=== PATIENT | female | born 1985 | race Caucasian/White ===

== ENCOUNTER 2017-01-17 07:00 | Day surgery (SDC) | payer BC ==
[~2017-01-17 07:00] MED LIST: Midazolam 1 MG/ML 2 ML SDV ONE; fentaNYL 100 MCG/2 ML SDV ONE
[2017-01-17] MEDS ORDERED: fentaNYL 100 MCG/2 ML SDV IV ONE ×5 (07:54→15:17)
[2017-01-17] MEDS ORDERED: Midazolam 1 MG/ML 2 ML SDV IV ONE ×7 (07:56→15:17)
[2017-01-17] MEDS ORDERED: Dextrose 5%-0.45% NaCl 1,000 ML IV SCH (08:00)
[2017-01-17] MEDS ORDERED: Sodium Chloride 0.9% 10 ML Syringe FLUSH PRN (08:00)
[2017-01-17 09:51] VITALS: BP 104/70
--- NOTE | 2017-01-17 12:23 | OR ---
DATE: 01/17/2017 PROCEDURE: Total colonoscopy. INSTRUMENT USED: PCF-160AL Olympus video colonoscope. PREMEDICATIONS: 1. Fentanyl 150 mcg intravenous. 2. Versed 4 mg intravenous. The procedure was done under pulse oximetry, BP recording, and campus monitor. INDICATION: The patient with chronic constipation and persistent abdominal pain, unexplained, and not responsive to medical measures. Family history for colon cancer in her mother at the age of 60, high risk for colon cancer. Colonoscopic examination is done for detection of any polypoid lesions and removal, endoscopic hemostasis therapy if needed. DESCRIPTION OF PROCEDURE: Initial rectal exam was unremarkable. Rigid anoscopy was normal. The colonoscope was passed with ease up to the ileocecal area, photographs were taken of the normal-appearing cecum identified by double-bulged ileocecal folds. No bleeding was noted from any of the visualized areas at the commencement of the examination. No stricture. No vascular ectasia. No large isolated ulcerations seen. No evidence of diffuse inflammatory bowel disease in the form of friability, contact bleeding, or ulcerations. No polyp or tumor mass identified. Probing the proximal sides of folds and flexures, using adequate distention and clearing up the stool material, withdrawal of the scope was made. Cecum to rectum time over 6 minutes. No bleeding was noted from any of the visualized areas at the completion of examination. IMPRESSION: Normal study. The patient tolerated the procedure well. [facility] /[id number]
== END 2017-01-17 10:10 | disposition home or self-care (01) ==
LOC: DL.ENDO 07:00
PROVIDERS: ATTEND Internal Medicine Gastroenterology
DX: K59.00 Constipation, unspecified (principal); R10.9 Unspecified abdominal pain; E66.9 Obesity, unspecified; Z88.1 Allergy status to other antibiotic agents; F17.210 Nicotine dependence, cigarettes, uncomplicated; Z79.899 Other long term (current) drug therapy; Z98.890 Other specified postprocedural states
CPT/HCPCS: 45378; J2250; J3010; J7042

== ENCOUNTER 2017-03-21 06:29 | Day surgery (SDC) | payer BC ==
[2017-03-21] MEDS ORDERED: ceFAZolin 2 GM in Premix Bag 1 BAG IV ONE (06:30)
[2017-03-21] MEDS ORDERED: Lidocaine 2% 20 ML MDV INJECT ONE (06:30)
[2017-03-21] MEDS ORDERED: Glycopyrrolate 0.2 MG/ML 2 ML SDV IV ONE (06:30)
[2017-03-21] MEDS ORDERED: Propofol 200 MG/20 ML SDV IV ONE (06:30)
[2017-03-21] MEDS ORDERED: Meperidine PF 50 MG/ML Syringe IV ONE (06:30)
[2017-03-21] MEDS ORDERED: Rocuronium 50 MG/5 ML Vial IV ONE (06:30)
[2017-03-21] MEDS ORDERED: Midazolam 1 MG/ML 2 ML SDV IV ONE (06:30)
[2017-03-21] MEDS ORDERED: HYDROmorphone 1 MG/ML Syringe IV ONE (06:30)
[2017-03-21] MEDS ORDERED: Neostigmine Methylsulfate 10 MG/10 ML MDV IV ONE (06:30)
[2017-03-21] MEDS ORDERED: Ondansetron 4 MG/2 ML SDV IV ONE (06:30)
[2017-03-21] MEDS ORDERED: fentaNYL 100 MCG/2 ML SDV IV ONE (06:30)
[2017-03-21] MEDS ORDERED: Ondansetron 4 MG/2 ML SDV ONE (07:33)
[2017-03-21] MEDS ORDERED: Midazolam 1 MG/ML 2 ML SDV ONE (07:33)
[2017-03-21] MEDS ORDERED: Rocuronium 50 MG/5 ML Vial ONE (07:34)
[2017-03-21] MEDS ORDERED: Lidocaine 2% 20 ML MDV ONE (07:34)
[2017-03-21] MEDS ORDERED: Propofol 200 MG/20 ML SDV ONE (07:34)
[2017-03-21] MEDS ORDERED: Meperidine PF 50 MG/ML Syringe ONE (07:34)
[2017-03-21] MEDS ORDERED: fentaNYL 100 MCG/2 ML SDV ONE (07:36)
--- NOTE | 2017-03-21 08:14 | PCM.PREANE ---
Preanesthetic Assessment - Procedure Proposed Procedure: Lap> Cholecystectomy - Anesthesia/Transfusion/Family Hx Anesthesia History: Prior Anesthesia Without Reaction Family History of Anesthesia Reaction: No Transfusion History: No Prior Transfusion(s) Intubation History: Unknown - Review of Systems General: No Symptoms Pulmonary: No Symptoms Cardiovascular: No Symptoms Gastrointestinal: No Symptoms Neurological: No Symptoms Other: Reports: None - Physical Assessment NPO Status Date: 03/20/17 NPO Status Time: 20:00 Pulse: 81 O2 Sat by Pulse Oximetry: 100 Respiratory Rate: 18 Blood Pressure: 115/75 Temperature: 97.8 F Height: 1.75 m Weight: 81.647 kg ASA Class: 1 () Mental Status: Alert & Oriented x3 Airway Class: Mallampati = 2 Dentition: Reports: Normal Dentition Thyro-Mental Finger Breadths: 3 Mouth Opening Finger Breadths: 3 ROM/Head Extension: Full Lungs: Clear to Auscultation, Normal Respiratory Effort Cardiovascular: Regular Rate, Regular Rhythm - Lab Values: test is negative - Allergies Allergies/Adverse Reactions: Allergies Allergy/AdvReac Type Severity Reaction Status Date / Time erythromycin base Allergy Vomiting Verified 03/19/17 12:59 [Erythromycin Base] - Blood Blood Available: No Product(s) Available: None - Anesthesia Plan Pre-Op Medication Ordered: None - Acknowledgements Anesthesia Type Planned: General Anesthesia Pt an Appropriate Candidate for the Planned Anesthesia: Yes Alternatives and Risks of Anesthesia Discussed w Pt/Guardian: Yes Pt/Guardian Understands and Agrees with Anesthesia Plan: Yes Additional Comments: R/B of general Anesthesia is discussed with patient and consent is signed. 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 Other OB/BYN History: previous Neurological History: Reports: Migraines Psychiatric History: Reports: Anxiety, Depression Endocrine/Metabolic History: Reports: Obesity/BMI 30+ - Infectious Disease History Infectious Disease History: Reports: Chicken Pox - Past Surgical History Female Surgical History: Reports: Section Other Female Surgeries/Procedures: HX OF IUD - SUBSTANCE USE Smoking Status *Q: Former Smoker Tobacco Use Within Last Twelve Months: Cigarettes Other Tobacco Use Within Last Twelve Months: 02/13/2017 Second Hand Smoke Exposure: No Days Per Week of Alcohol Use: 0 Number of Drinks Per Day: 0 Total Drinks Per Week: 0 Recreational Drug Use History: No - HOME MEDS Home Medications: Home Meds Ibuprofen 1 tab PO ASDIRECTED 01/15/17 [History] Naratriptan HCl 1 tab PO DAILY PRN 01/15/17 [History] Norgestrel-Ethinyl Estradiol [Elinest-28 Tablet] 1 tab PO DAILY 01/15/17 [ History] Sodium Chloride [Saline Nasal Mist] 1 spray NASBOTH ASDIRECTED 01/15/17 [History ] busPIRone [Buspar] 1 tab PO DAILY PRN 01/15/17 [History] Biotin [Hard Nails] 1 cap PO DAILY 01/16/17 [History] diphenhydrAMINE [Benadryl] 25 mg PO Q6H PRN 01/17/17 [History] - CURRENT (IN HOUSE) MEDS Current Meds: Current Medications Discontinued Medications Fentanyl (Sublimaze) Confirm Administered Dose 200 mcg .ROUTE .STK-MED ONE Stop: 03/21/17 07:37 Cefazolin Sodium/Dextrose (Ancef) Confirm Administered Dose 50 mls @ as directed .ROUTE .STK-MED ONE Stop: 03/21/17 07:43 Lidocaine HCl (Xylocaine 2%) Confirm Administered Dose 20 ml .ROUTE .STK-MED ONE Stop: 03/21/17 07:35 Meperidine HCl (Demerol) Confirm Administered Dose 50 mg .ROUTE .STK-MED ONE Stop: 03/21/17 07:35 Midazolam HCl (Versed 1 Mg/Ml) Confirm Administered Dose 2 mg .ROUTE .STK-MED ONE Stop: 03/21/17 07:34 Ondansetron HCl (Zofran) Confirm Administered Dose 4 mg .ROUTE .STK-MED ONE Stop: 03/21/17 07:34 Propofol (Diprivan 20 Ml) Confirm Administered Dose 200 mg .ROUTE .STK-MED ONE Stop: 03/21/17 07:35 Rocuronium [place] (Zemuron) Confirm Administered Dose 50 mg .ROUTE .STK-MED ONE Stop: 03/21/17 07:35
[2017-03-21] MEDS ORDERED: HYDROmorphone 1 MG/ML Syringe ONE ×2 (08:56→09:06)
--- NOTE | 2017-03-21 09:13 | PCM.POSTAN ---
POST ANESTHESIA ASSESSMENT - MENTAL STATUS Mental Status: Alert, Oriented - VITAL SIGNS Pulse Rate: 82 SaO2: 100 Resp Rate: 18 Blood Pressure: 134/82 Temperature: 97.6 F - RESPIRATORY Respiratory Status: Respiratory Rate WNL, Airway Patent, O2 Saturation Stable - CARDIOVASCULAR CV Status: Pulse Rate WNL, Blood Pressure Stable - GASTROINTESTINAL GI Status: No Symptoms - PAIN Pain Score: 3 Free Text/Narrative:: Patient pain was 6 and was treated with 2 mg dilaudid( titrated to effect) pain is under control with a score of 3. Tolerated fluid well and discharged to her room on the floor. - POST OP HYDRATION Hydration Status: Adequate & Stable
--- NOTE | 2017-03-21 09:28 | OR ---
DATE: 03/21/2017 ATTENDING SURGEON: Soy Hanks MD DIGITAL PROGRAM MANAGER SURGEON: Paolo Elizondo, PGY-III PREOPERATIVE DIAGNOSIS: Symptomatic cholelithiasis. POSTOPERATIVE DIAGNOSIS: Symptomatic cholelithiasis. OPERATIVE PROCEDURE: Laparoscopic cholecystectomy. ESTIMATED BLOOD LOSS: 5 mL. SPECIMEN: Gallbladder INTRAOPERATIVE FINDINGS: Normal appearing gallbladder, normal appearing liver. No intra-abdominal adhesions present. Gallbladder was opened on the back table with evidence of two large stones and normal appearing colored bile. INDICATION FOR PROCEDURE: Clari Eisenberg is a 32-year-old female, who presented with signs and symptoms of symptomatic cholelithiasis. We discussed the risks and benefits as well as alternatives and non operative management and she wished to proceed with surgery at this time. DETAILS OF PROCEDURE: The patient was brought to the operating room, placed supine on the operating room table. SCDs were placed. Antibiotics were given. She was intubated and sedated without issue. She was prepped and draped in standard sterile fashion. Procedural time-out was performed and all were in agreement. A 12 mm infraumbilical incision was made and insufflation was obtained using Veress needle. A 12 mm trocar was then placed without issue. An additional 12 mm port was placed in the subxiphoid and two 5 mm right upper quadrant trocars. The gallbladder was retracted cephalad towards the right shoulder. The peritoneum was scored all the way to the liver bed on both sides. The cystic duct and artery were dissected free from the surrounding tissue. [place] of safety was obtained. They were doubly clipped on both the proximal and distal portions and cut in between the clips. Electrocautery was then used to free the gallbladder from the liver bed until it was free, it was then extracted through the subxiphoid 12 mm port site. Hemostasis was reassured. The trocars were removed under direct visualization without any obvious bleeding. The skin was closed with 4-0 Monocryl. Steri-Strips and sterile bandages were placed. The patient was brought out of anesthesia and transferred to PACU in stable condition. All counts were correct at the end of the case. Dr. Soy Hanks was present, scrubbed, and directed all portions of the procedure. [facility] /[id number] [facility]
[2017-03-21] MEDS ORDERED: Ondansetron 4 MG/2 ML SDV IV PRN (10:07)
[2017-03-21] MEDS ORDERED: Sodium Chloride 0.9% 10 ML Syringe FLUSH PRN (10:17)
[2017-03-21] MEDS: Acetaminophen/oxyCODONE 325-5 MG Tab PO PRN ×4 (10:54→23:48)
[2017-03-22] MEDS: Acetaminophen/oxyCODONE 325-5 MG Tab PO PRN ×2 (04:16→08:13)
--- NOTE | 2017-03-22 07:58 | DISCH ---
ADMISSION DIAGNOSIS: Symptomatic cholelithiasis. DISCHARGE DIAGNOSIS: Symptomatic cholelithiasis. OPERATIVE PROCEDURE: Laparoscopic cholecystectomy. DIET UPON DISCHARGE: Regular. MEDICATIONS UPON DISCHARGE: All home medications restarted. Handwritten script given to the patient for Percocet 5/325 mg. Discussed starting an over-the- counter bowel regimen, which she would like to start an [id number] senna, which was okay. ACTIVITY: As tolerated. No lifting more than 20 pounds for 4 weeks. FOLLOWUP: Follow up as needed. Dr. Hanks is back the week of 04/08/2017, and she can follow up then if there are any questions. DISCHARGE INSTRUCTIONS: She may shower starting tomorrow. No tub bathing or swimming until the wounds are completely healed. She is to keep the operative sites clean and dry. Notify if any fever, increased pain, increased swelling, redness, or drainage to the area. HOSPITAL COURSE: Clari Eisenberg is a 32-year-old female who presented with signs and symptoms consistent with symptomatic cholelithiasis. She underwent a laparoscopic appendectomy without issue. Postoperatively, she was kept overnight for observation as an outpatient in a bed. She was ambulating and tolerating a diet without issue. Her pain was well controlled. 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 Her hospital course was unremarkable, and therefore, she was discharged on postoperative day #1. Follow up as listed above. Discharge instructions as above. [facility] /[id number]
[2017-03-22 09:29] VITALS: BP 120/68
== END 2017-03-22 08:40 | disposition home or self-care (01) ==
LOC: DL.SDS 06:29 → DL.MS 09:24 → EDSTATUS 10:30 → DL.SDS 03-22 08:40
PROVIDERS: ATTEND Surgery
DX: K80.10 Calculus of gallbladder with chronic cholecystitis without obstruction (principal)
CPT/HCPCS: 47562; 81025; A9270; J0690; J1170; J2175; J2250; J2405; J2704; J2710; J3010; J3490

== ENCOUNTER 2017-04-23 04:45 | Emergency (ER) | payer BC ==
[2017-04-23] MEDS ORDERED: Ondansetron 4 MG Tab.DIS PO ONE (04:46)
[2017-04-23] MEDS ORDERED: Acetaminophen/oxyCODONE 325-5 MG Tab PO ONE (04:46)
--- NOTE | 2017-04-23 04:55 | EDM.PDOC ---
ED HPI GENERAL MEDICAL PROBLEM - General Chief Complaint: ENT Problem Stated Complaint: EAR PAIN Time Seen by Provider: 04/23/17 05:05 Source of Information: Reports: Patient History Limitations: Reports: No Limitations - History of Present Illness INITIAL COMMENTS - FREE TEXT/NARRATIVE: c/o severe right ear pain with drainage, left ear tender, not draining, throat sore, right side of face feels swollen. Was [facility] and started on Rocephin, kenalog, and amoxicillin. Notes given a toardol shot that helped with pain until bed. Tried Tylenol #3 but not helping. - Related Data Allergies Allergy/AdvReac Type Severity Reaction Status Date / Time erythromycin base Allergy Vomiting Verified 04/23/17 04:53 [Erythromycin Base] Home Meds: Home Meds Ibuprofen 800 mg PO TID PRN 01/15/17 [History] Naratriptan HCl 2.5 mg PO ASDIRECTED PRN 01/15/17 [History] Norgestrel-Ethinyl Estradiol [Elinest-28 Tablet] 1 tab PO DAILY 01/15/17 [ History] busPIRone [Buspar] 10 mg PO BID PRN 01/15/17 [History] Biotin [Hard Nails] 2,500 mcg PO DAILY 01/16/17 [History] diphenhydrAMINE [Benadryl] 25 mg PO Q6H PRN 01/17/17 [History] Past Medical History HEENT History: Reports: Impaired Vision Cardiovascular History: Reports: Other (See Below) Other Cardiovascular History: tachycardia Gastrointestinal History: Reports: Chronic Constipation, Irritable Bowel Syndrome Genitourinary History: Reports: None 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: , 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 Other OB/BYN History: previous Neurological History: Reports: Migraines Psychiatric History: Reports: Anxiety, Depression Endocrine/Metabolic History: Reports: Obesity/BMI 30+ Dermatologic History: Reports: Psoriasis - Infectious Disease History Infectious Disease History: Reports: Chicken Pox - Past Surgical History HEENT Surgical History: Reports: None Cardiovascular Surgical History: Reports: None GI Surgical History: Reports: Cholecystectomy Female Surgical History: Reports: Section Other Female Surgeries/Procedures: HX OF IUD- not in place now Neurological Surgical History: Reports: None Dermatological Surgical History: Reports: Skin Biopsy Social & Family History - Family History Family Medical History: Noncontributory - Tobacco Use Smoking Status *Q: Former Smoker Years of Tobacco use: 16 Packs/Tins Daily: 0.5 Used Tobacco, but Quit: Yes Month Tobacco Last Used: january Second Hand Smoke Exposure: No - Caffeine Use Caffeine Use: Reports: Coffee, Soda - Alcohol Use Days Per Week of Alcohol Use: 0 Number of Drinks Per Day: 0 Total Drinks Per Week: 0 - Recreational Drug Use Recreational Drug Use: No ED ROS ENT - Review of Systems Review Of Systems: See Below Constitutional: Reports: Decreased Appetite HEENT: Reports: Ear Discharge, Ear Pain, Throat Pain Respiratory: Reports: No Symptoms, Shortness of Breath. Denies: Cough Cardiovascular: Reports: No Symptoms GI/Abdominal: Reports: Nausea. Denies: Vomiting Skin: Reports: No Symptoms Neurological: Reports: No Symptoms ED EXAM, ENT - Physical Exam Exam: See Below Exam Limited By: No Limitations General Appearance: Alert, Moderate Distress (tearful) Eye Exam: Bilateral Eye: EOMI Ears: Normal External Exam, Canal Discharge, TM Bulging (left), TM Perforation ( right, bloody drainage). No: Normal TMs Nose: Normal Inspection Mouth/Throat: Tonsillar Erythema, Tonsillar Exudates, Tonsillar Swelling Head: Atraumatic, Normocephalic Neck: Full Range of Motion, Lymphadenopathy (L), Lymphadenopathy (R) Respiratory/Chest: No Respiratory Distress, Lungs Clear Cardiovascular: Normal Peripheral Pulses, Regular Rate, Rhythm Back: Full Range of Motion Extremities: Normal Range of Motion Neurological: Alert, Oriented Psychiatric: Tearful Skin: Warm, Dry, Normal Color Course - Orders/Labs/Meds Meds: Medications Discontinued Medications Generic Name Dose Route Start Last Admin Trade Name Luisito PRN Reason Stop Dose Admin Ceftriaxone Sodium 1 gm/ 0 gm 04/23/17 05:04 04/23/17 05:13 Lidocaine HCl 2.1 ml IM 04/23/17 05:05 2.3 inj ONETIME ONE Administration Ketorolac Tromethamine 30 mg 04/23/17 05:04 04/23/17 05:14 Toradol IM 04/23/17 05:05 30 mg ONETIME ONE Administration Ondansetron HCl Confirm 04/23/17 05:19 Zofran Odt Administered 04/23/17 05:20 Dose 8 mg .ROUTE .STK-MED ONE Oxycodone/Acetaminophen Confirm 04/23/17 05:19 Percocet 325-5 Mg Administered 04/23/17 05:20 Dose 2 tab .ROUTE .STK-MED ONE Departure - Departure Time of Disposition: 05:31 Disposition: Home, Self-Care 01 Condition: Good Clinical Impression: Acute bacterial tonsillitis Otitis media Qualifiers: Otitis media type: serous Chronicity: acute Laterality: bilateral Recurrence: not specified as recurrent Qualified Code(s): H65.03 - Acute serous otitis media , bilateral Ruptured tympanic membrane Qualifiers: Laterality: right Qualified Code(s): H72.91 - Unspecified perforation of tympanic membrane, right ear - Discharge Information Forms: ED Department Discharge Additional Instructions: Zofran ODT one every 4 hours as needed for nausea #10 Ofloxacin Otic 0.3% 10 drops twice daily for 10 days Toradol 10mg one every 6 hours as needed for severe pain #10 Percocet one every 6 hours #2 Continue amoxicillin Follow up in clinic in 10 days, sooner if not improving increase fluid intake while on antibiotic diflucan 150mg one at symptoms onset and repeat in 72 hours #2
[2017-04-23] MEDS ORDERED: cefTRIAXone 1 GM, Lidocaine 1% 2.1 ML IM ONE ×2 (05:04)
[2017-04-23] MEDS ORDERED: Ketorolac 30 MG/ML SDV IM ONE (05:04)
[2017-04-23] MEDS ORDERED: Ondansetron 4 MG Tab.DIS ONE (05:19)
[2017-04-23] MEDS ORDERED: Acetaminophen/oxyCODONE 325-5 MG Tab ONE (05:19)
[2017-04-23 05:27] VITALS: BP 138/84
== END 2017-04-23 05:30 | disposition home or self-care (01) ==
LOC: DL.ED 04:45
DX: J03.80 Acute tonsillitis due to other specified organisms (principal); B96.89 Other specified bacterial agents as the cause of diseases classified elsewhere; H65.03 Acute serous otitis media, bilateral; H72.91 Unspecified perforation of tympanic membrane, right ear; E66.9 Obesity, unspecified; F32.9 Major depressive disorder, single episode, unspecified; F41.9 Anxiety disorder, unspecified; Z88.1 Allergy status to other antibiotic agents; Z79.899 Other long term (current) drug therapy; Z87.891 Personal history of nicotine dependence
CPT/HCPCS: 96372; 99282; A9270; J0696; J1885

== ENCOUNTER 2017-04-24 01:54 | Emergency (ER) | payer BC ==
[2017-04-24 02:09] VITALS: BP 142/85
[2017-04-24] MEDS ORDERED: Ketorolac 30 MG/ML SDV IM ONE (02:14)
--- NOTE | 2017-04-24 02:21 | EDM.PDOC ---
ED HPI GENERAL MEDICAL PROBLEM - General Chief Complaint: ENT Problem Stated Complaint: EAR PAIN Time Seen by Provider: 04/24/17 02:05 Source of Information: Reports: Patient History Limitations: Reports: No Limitations - History of Present Illness INITIAL COMMENTS - FREE TEXT/NARRATIVE: C/O continued severe right ear pain, worse after toradol wears off, Tried oral toradol that was prescribed yesterday and nauseated from it and noted that it did not work as well. Patient stated she was seen in clinic today around 430 and given another dose of Rocephin and IM toradol, . Referral later this am with ENT in [place]. Notes ear drainage slightly decreased. Pain all around ear now and feel like area is swelling. Duration: Day(s): Left Ear Pain Score (Numeric/FACES): 8 - Related Data Allergies Allergy/AdvReac Type Severity Reaction Status Date / Time erythromycin base Allergy Vomiting Verified 04/25/17 12:01 [Erythromycin Base] Home Meds: Home Meds Ibuprofen 800 mg PO TID PRN 01/15/17 [History] Naratriptan HCl 2.5 mg PO ASDIRECTED PRN 01/15/17 [History] Norgestrel-Ethinyl Estradiol [Elinest-28 Tablet] 1 tab PO DAILY 01/15/17 [ History] busPIRone [Buspar] 10 mg PO BID PRN 01/15/17 [History] Biotin [Hard Nails] 2,500 mcg PO DAILY 01/16/17 [History] diphenhydrAMINE [Benadryl] 25 mg PO Q6H PRN 01/17/17 [History] Ofloxacin [Floxin 0.3% Otic Soln] 10 drop EARRT BID 04/25/17 [History] Ondansetron HCl [Zofran] 4 mg PO DAILY PRN 04/25/17 [History] oxyCODONE HCl/Acetaminophen [Oxycodone-Acetaminophen 10-300] 1 tab PO DAILY PRN 04/25/17 [History] Past Medical History HEENT History: Reports: Impaired Vision Cardiovascular History: Reports: Other (See Below) Other Cardiovascular History: tachycardia Gastrointestinal History: Reports: Chronic Constipation, Irritable Bowel Syndrome Genitourinary History: Reports: None 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: , 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 Other OB/BYN History: previous Neurological History: Reports: Migraines Psychiatric History: Reports: Anxiety, Depression Endocrine/Metabolic History: Reports: Obesity/BMI 30+ Dermatologic History: Reports: Psoriasis - Infectious Disease History Infectious Disease History: Reports: Chicken Pox - Past Surgical History HEENT Surgical History: Reports: None Cardiovascular Surgical History: Reports: None GI Surgical History: Reports: Cholecystectomy Female Surgical History: Reports: Section Other Female Surgeries/Procedures: HX OF IUD- not in place now Neurological Surgical History: Reports: None Dermatological Surgical History: Reports: Skin Biopsy Social & Family History - Family History Family Medical History: Noncontributory - Tobacco Use Smoking Status *Q: Never Smoker Years of Tobacco use: 16 Packs/Tins Daily: 0.5 Used Tobacco, but Quit: Yes Month Tobacco Last Used: january Second Hand Smoke Exposure: Yes - Caffeine Use Caffeine Use: Reports: Coffee, Soda - Alcohol Use Days Per Week of Alcohol Use: 0 Number of Drinks Per Day: 0 Total Drinks Per Week: 0 - Recreational Drug Use Recreational Drug Use: No ED ROS ENT - Review of Systems Review Of Systems: See Below Constitutional: Reports: Fever HEENT: Reports: Ear Pain (right), Throat Pain Respiratory: Reports: No Symptoms GI/Abdominal: Reports: Nausea Neurological: Reports: Headache (right side around ear) ED EXAM, ENT - Physical Exam Exam: See Below Exam Limited By: No Limitations General Appearance: Alert, Moderate Distress Ears: Normal Canal (left), Canal Discharge (right, blood tinged clear fluid draining), TM Dullness (left), TM Perforation (right) Nose: Normal Inspection Head: Atraumatic, Normocephalic, Facial Tenderness (right lateral around ear and mastoid area, no obvious swelling of mastoid area.) Neck: Full Range of Motion, Lymphadenopathy (L), Lymphadenopathy (R). No: Limited Range of Motion Respiratory/Chest: No Respiratory Distress, Lungs Clear Cardiovascular: Regular Rate, Rhythm Neurological: Alert, Oriented, Normal Cognition Psychiatric: Anxious, Tearful Skin: Warm, Increased Warmth Course - Vital Signs Last Recorded V/S: Last Vital Signs Temp 99.2 F 04/24/17 02:05 Pulse 99 04/24/17 02:05 Resp 19 04/24/17 02:05 BP 142/85 H 04/24/17 02:05 Pulse Ox 100 04/24/17 02:05 - Orders/Labs/Meds Meds: Medications Discontinued Medications Generic Name Dose Route Start Last Admin Trade Name Luisito PRN Reason Stop Dose Admin Ketorolac Tromethamine 60 mg 04/24/17 02:14 04/24/17 02:25 Toradol IM 04/24/17 02:15 60 mg ONETIME ONE Administration Departure - Departure Time of Disposition: 02:25 Disposition: Home, Self-Care 01 Condition: Fair Clinical Impression: Strep pharyngitis Ruptured tympanic membrane Qualifiers: Laterality: right Qualified Code(s): H72.91 - Unspecified perforation of tympanic membrane, right ear Otitis media Qualifiers: Otitis media type: serous Chronicity: acute Laterality: right Recurrence: not specified as recurrent Qualified Code(s): H65.01 - Acute serous otitis media, right ear - Discharge Information Instructions: Eardrum Perforation, [id number] Referrals: Norma Ferrell MD [Primary Care Provider] - Forms: ED Department Discharge Additional Instructions: Continue antibiotics ENT referral in am as scheduled
== END 2017-04-24 02:26 | disposition home or self-care (01) ==
LOC: DL.ED 01:54
DX: H72.91 Unspecified perforation of tympanic membrane, right ear (principal); H65.01 Acute serous otitis media, right ear; J02.0 Streptococcal pharyngitis; E66.9 Obesity, unspecified; F41.9 Anxiety disorder, unspecified; F32.9 Major depressive disorder, single episode, unspecified; L40.9 Psoriasis, unspecified; Z88.1 Allergy status to other antibiotic agents; Z79.899 Other long term (current) drug therapy
CPT/HCPCS: 96372; 99282; J1885

== ENCOUNTER 2017-04-25 21:54 | Observation (INO) | payer BC ==
[2017-04-25] MEDS ORDERED: Sodium Chloride 0.9% 10 ML Syringe FLUSH PRN (22:09)
[2017-04-25] MEDS ORDERED: Promethazine 25 MG/ML SDV IM PRN (22:09)
[2017-04-25] MEDS: Piperacillin/Tazobactam 3.375 GM in Sodium Chloride 0.9% 100 ML IV SCH (23:51)
[2017-04-26 00:02] LABS: CHLORIDE,CL 105 mmol/L (101-111); SODIUM,NA 137 mmol/L (135-145)
[2017-04-26] MEDS: Ibuprofen 800 MG Tab PO PRN ×2 (00:58→08:24)
--- NOTE | 2017-04-26 02:40 | HP ---
CHIEF COMPLAINT: Mastoiditis, needing IV antibiotics. HISTORY OF PRESENT ILLNESS: A 32-year-old female patient, [facility] order to change her IV antibiotics for mastoiditis. The patient was originally seen at [facility] on Saturday for worsening right-sided ear pain and diagnosed with otitis media, treated with Rocephin, amoxicillin, and injection of Depo-Medrol. Also needed some Toradol for controlling the pain. Ultimately, her symptoms worsened and on April 24, she was seen by ENT in [place], who performed CT scan and laboratory work and diagnosed her with mastoiditis. She then received Rocephin and vancomycin in the Emergency Department in [place], 2 g of the Rocephin and 500 mg of the vancomycin. She was then sent to me for outpatient daily IV antibiotic therapy. Today, in the hospital, she received 500 mg of vancomycin and 1 g of Rocephin and then, this evening, I had opportunity to speak with the ENT doctor and it seemed rather unclear the best antibiotic treatment and specific dosing that would be necessary. I then called Dr. Betancur, the infectious disease specialist at [facility], and reviewed the patient's case. It was ultimately decided that 1 g of vancomycin every 12 hours, and Zosyn 3.325 infused over 4 hours to be performed every 8 hours was the best course of treatment along with discontinuation of the Rocephin at this time. Pending further cultures, antibiotic therapy will be further decided upon and altered as appropriate. Currently, the Gram-stain was not known to me and simply reported out as "not helpful." The culture will hopefully be back tomorrow and the patient can go to [place] and see the infectious disease specialist and have those reports at that time. During my discussion with Dr. Ashraf, the Ear, Nose, and Throat doctor, we discussed that the eardrum was red and bulging and he had anticipated getting more purulent drainage when he placed the ventilation tube; however, it seemed to be more of a weeping in quality and the patient reports that the pain has not been significantly improved by placement of the tube as she had hoped it would and feels majority of her pain is due to the inflammation. This afternoon, I also started her on some prednisone and she feels that her pain is much better controlled with the steroids on board and understands that repeat IV doses of Toradol could potentially be dangerous for her kidneys and not the ideal pain medication. She has had some different opioids given in the past couple of days and those have not been helpful nor does she like to take those types of medications. The patient reports she still just does not feel generally well, mild nausea, continues to have significant dizziness any time that she moves her head quickly. 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 PAST MEDICAL HISTORY: 1. Cholelithiasis. 2. Depression with anxiety. 3. Dysmenorrhea. 4. History of recurrent miscarriages. 5. Irritable bowel syndrome. 6. Migraine headaches. 7. Reactive hypoglycemia. PAST SURGICAL HISTORY: 1. Laparoscopic cholecystectomy. 2. Low transverse section x2. 3. Colonoscopy. FAMILY HISTORY: Mother is alive, she has bipolar disorder, colon cancer diagnosed at age 60 with metastases to her ovaries. Father is alive with diabetes type 2. The patient has 2 sisters and 2 brothers, all of whom are alive. Maternal grandmother is . Family history is negative for anesthesia problems, seizure disorders, cystic fibrosis, multiple births or defects, clotting or bleeding disorders. SOCIAL HISTORY: The patient smokes less than 1/2 pack per day and plans on quitting. Rarely uses alcohol. 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 She is to Joe, who continues to work as an RN at [employer] in [place]. She has two children. ALLERGIES: Erythromycin is an intolerance causing nausea and vomiting. CURRENT MEDICATIONS: 1. Prednisone 50 mg p.o. daily, started today. 2. Ofloxacin otic drops, 10 drops in the right ear twice daily. 3. Biotin 2500 mcg daily. 4. Elinest oral contraceptive pill 1 daily. 5. Ibuprofen 800 mg three times daily as needed. 6. Zofran 4 mg daily as needed. 7. Oxycodone 10/300 one tab daily as needed. 8. Outpatient receiving vancomycin and Rocephin earlier today. REVIEW OF SYSTEMS: As per the history of present illness. The patient denies any overt fevers or chills. No diarrhea or constipation. No sore throat or chest pain. Denies discomfort of the left ear. Right ear reported to have sharp shooting pains that radiate down into the neck and significant vertigo. PHYSICAL EXAMINATION: Vital Signs: Weight 83.8 kg, stated height 5 feet 9 inches, temperature is 98.3, pulse 97, blood pressure initially 150/90, recheck 135/89, oxygen saturations 97% on room air. Respiratory rate of 20. HEENT: Head is normocephalic. No obvious signs of trauma. No visible swelling. Mild tenderness noted to palpation behind the right ear. External canal and auricle appear normal. Tympanic membrane is beefy red and raw in appearance, looks as though it should be bleeding and amazingly is not. There is a blue PE tube in place with small amount of purulent drainage at this time. Left tympanic membrane appears normal. Neck: Supple without any significant adenopathy. The patient reports that the swelling in the submandibular region has gone down. Heart: Regular without any murmur. Lungs: Clear bilaterally. Abdomen: Soft without masses. Extremities: No edema, erythema, or tenderness. Skin: Warm, dry, appropriate for race. No rashes. ASSESSMENT: 1. Mastoiditis. 2. Severe pain secondary to #1. 3. History of anxiety with depression and recently having increased anxiety partly due to her medical condition. PLAN: At this time, she has been admitted to the hospital and we will give her the 1 g of vancomycin, it is due at this time, as well as start the Zosyn 325 mg every 8 hours. Tomorrow morning, we will arrange for her to see Infectious Disease and additional antibiotics that are warranted to coincide with this will be administered. I have discussed with the patient that per my discussion with Dr. Betancur, she may need to have a PICC line placed and anticipate 2 weeks of antibiotics which we will try to arrange to be provided at home; however, she may need to spend some additional time in the Emergency Department. Per Dr. Ashraf, if the mastoiditis is not resolved with appropriate antibiotic therapy, then possible mastoidectomy should be considered. The patient's questions were answered and she was in agreement with the plan. [facility] /[id number] [facility]ITALJefferson
[2017-04-26] MEDS ORDERED: Piperacillin/Tazobactam 3.375 GM in Sodium Chloride 0.9% 100 ML IV SCH (06:00)
[2017-04-26] MEDS: Piperacillin/Tazobactam 3.375 GM in Sodium Chloride 0.9% 100 ML IV SCH (08:24)
[2017-04-26] MEDS ORDERED: Ketorolac 30 MG/ML SDV IVPUSH ONE (08:46)
[2017-04-26] MEDS ORDERED: Vancomycin 250 MG in Sodium Chloride 0.9% 100 ML IV ONE (09:30)
[2017-04-26 11:31] VITALS: BP 121/61
--- NOTE | 2017-05-02 17:16 | DISCH ---
ADMITTING DIAGNOSIS: Right-sided acute mastitis. DISCHARGE DIAGNOSIS: Right-sided acute mastitis. BRIEF HISTORY: A 32-year-old female, admitted to the hospital last night because of need for change in outpatient IV antibiotic therapy. She was essentially being underdosed with outpatient vancomycin and Rocephin. After discussion with Infectious Disease, felt that she needed to be changed over to Zosyn and vancomycin, and in order to accommodate the Zosyn infusions every 8 hours over 4 hours per infusion, she was admitted to the hospital. HOSPITAL COURSE: Hospital course has been good. She has received her antibiotics on time and as expected, currently running through 2 different IV sites. I have made arrangements for her to be seen by Infectious Disease today for further evaluation and placement of PICC line and continued IV antibiotic management. Hospital course has been good without any unusual effects. DISCHARGE CONDITION: Good. PHYSICAL EXAMINATION: Vital Signs: Temperature is 99.0, Blood pressure 121/61, respiratory rate of 20, O2 saturations 100% on room air. Heart And Lung: Formal heart and lung exam were deferred at this time as patient was seen only 6 to 7 hours ago, and will not affect management. DISPOSITION: Infectious Disease outpatient appointment today. MEDICATIONS: She can continue her; 1. Oral prednisone, Tylenol, and ibuprofen as needed. 2. IV antibiotics will be per the Infectious disease's recommendations. The patient's questions have been answered. She is happy with the plan. [facility] /[id number]
== END 2017-04-26 11:30 | disposition home or self-care (01) ==
LOC: DL.MS 22:09 → UNDOADMOB 22:29 → DL.MS 22:29
PROVIDERS: ADMIT Family Medicine; ATTEND Family Medicine
DX: H70.001 Acute mastoiditis without complications, right ear (principal); F41.8 Other specified anxiety disorders; K58.9 Irritable bowel syndrome, unspecified; F17.210 Nicotine dependence, cigarettes, uncomplicated; Z90.49 Acquired absence of other specified parts of digestive tract; Z98.890 Other specified postprocedural states; Z88.1 Allergy status to other antibiotic agents; Z79.2 Long term (current) use of antibiotics; Z79.899 Other long term (current) drug therapy
CPT/HCPCS: 36415; 80048; 80202; 85025; 96365; 96366; 96375; A9270; G0378; G0379; J1885; J2543; J3370; J7050

== ENCOUNTER 2017-05-15 14:17 | Emergency (ER) | payer BC ==
[2017-05-15 15:35] LABS: CHLORIDE,CL 105 mmol/L (101-111); SODIUM,NA 134 mmol/L (135-145)
[2017-05-15] MEDS ORDERED: Potassium Chloride 10 MEQ Tab.ER PO ONE (17:45)
[2017-05-15] MEDS ORDERED: Ondansetron 4 MG/2 ML SDV IV ONE (17:52)
[2017-05-15] MEDS ORDERED: Ondansetron 4 MG Tab.DIS PO ONE (18:00)
--- NOTE | 2017-05-15 18:16 | EDM.PDOC ---
ED HPI GENERAL MEDICAL PROBLEM - General Chief Complaint: General Stated Complaint: HIGH TEMP Time Seen by Provider: 05/15/17 15:30 Source of Information: Reports: Patient, RN, RN Notes Reviewed History Limitations: Reports: No Limitations - History of Present Illness INITIAL COMMENTS - FREE TEXT/NARRATIVE: Pt presents to the ER with c/o headache, fever, generalized aching and weakness. She has been doctoring with ENT and infectious disease at [facility] for the past month with a dx of mastoiditis. She has been taking IV Zosyn for 3-4 weeks. She states her fever at home was 104 and she took ibuprofen for this. She states she called Dr. Brewer's office and was told to present to ER. Onset: Gradual Location: Reports: Head Right Ear Pain Score (Numeric/FACES): 2 - Related Data Allergies Allergy/AdvReac Type Severity Reaction Status Date / Time erythromycin base Allergy Vomiting Verified 04/25/17 12:01 [Erythromycin Base] Home Meds: Home Meds Ibuprofen 800 mg PO TID PRN 01/15/17 [History] Naratriptan HCl 2.5 mg PO ASDIRECTED PRN 01/15/17 [History] Norgestrel-Ethinyl Estradiol [Elinest-28 Tablet] 1 tab PO DAILY 01/15/17 [ History] busPIRone [Buspar] 10 mg PO BID PRN 01/15/17 [History] Biotin [Hard Nails] 2,500 mcg PO DAILY 01/16/17 [History] diphenhydrAMINE [Benadryl] 25 mg PO Q6H PRN 01/17/17 [History] Ofloxacin [Floxin 0.3% Otic Soln] 10 drop EARRT BID 04/25/17 [History] Ondansetron HCl [Zofran] 4 mg PO DAILY PRN 04/25/17 [History] oxyCODONE HCl/Acetaminophen [Oxycodone-Acetaminophen 10-300] 1 tab PO Q6H PRN [History] Piperacillin/Tazobactam [Zosyn] 4.5 gm IV TID 05/15/17 [History] Past Medical History HEENT History: Reports: Impaired Vision, Other (See Below) Other HEENT History: RIGHT MASTOIDITIS Cardiovascular History: Reports: Other (See Below) Other Cardiovascular History: tachycardia Gastrointestinal History: Reports: Chronic Constipation, Irritable Bowel Syndrome Genitourinary History: Reports: None 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: Reports: , Spontaneous Other OB/BYN History: previous Neurological History: Reports: Migraines Psychiatric History: Reports: Anxiety, Depression Endocrine/Metabolic History: Reports: Obesity/BMI 30+ Dermatologic History: Reports: Psoriasis - Infectious Disease History Infectious Disease History: Reports: Chicken Pox - Past Surgical History HEENT Surgical History: Reports: Myringotomy w Tube(s), Other (See Below) Cardiovascular Surgical History: Reports: None GI Surgical History: Reports: Cholecystectomy Female Surgical History: Reports: Section Other Female Surgeries/Procedures: HX OF IUD- not in place now Neurological Surgical History: Reports: None Dermatological Surgical History: Reports: Skin Biopsy Social & Family History - Family History Family Medical History: Noncontributory - Tobacco Use Smoking Status *Q: Former Smoker Years of Tobacco use: 15 Packs/Tins Daily: 1 Used Tobacco, but Quit: Yes Month Tobacco Last Used: january 2017 Second Hand Smoke Exposure: Yes - Caffeine Use Caffeine Use: Reports: Soda - Alcohol Use Days Per Week of Alcohol Use: 0 Number of Drinks Per Day: 0 Total Drinks Per Week: 0 - Recreational Drug Use Recreational Drug Use: No ED ROS GENERAL - Review of Systems Review Of Systems: ROS reveals no pertinent complaints other than HPI. ED EXAM, GENERAL - Physical Exam Exam: See Below Exam Limited By: No Limitations General Appearance: Alert, WD/WN, No Apparent Distress Eye Exam: Bilateral Eye: Normal Inspection Ears: Hearing Grossly Normal, Other (Cotton ball in right ear. TM's not examined at this time.) Nose: Normal Inspection Throat/Mouth: Normal Inspection, Normal Voice, No Airway Compromise Head: Atraumatic, Normocephalic Neck: Normal Inspection Respiratory/Chest: No Respiratory Distress, Lungs Clear, Normal Breath Sounds, No Accessory Muscle Use, Chest Non-Tender Cardiovascular: Normal Peripheral Pulses, Regular Rate, Rhythm, No Edema, No Gallop, No JVD, No Murmur, No Rub Peripheral Pulses: 2+: Radial (L), Radial (R) GI/Abdominal: Normal Bowel Sounds, Soft, Non-Tender (Female) Exam: Deferred Rectal (Female) Exam: Deferred Back Exam: Normal Inspection, Full Range of Motion Extremities: Normal Inspection, Normal Range of Motion, Non-Tender, No Pedal Edema, Normal Capillary Refill Neurological: Alert, Oriented, Normal Cognition, Normal Gait, No Motor/Sensory Deficits Psychiatric: Normal Affect, Depressed Mood, Flat Affect Skin Exam: Warm, Dry, Intact, Normal Color, No Rash Lymphatic: No Adenopathy Course - Vital Signs Last Recorded V/S: Last Vital Signs Temp 98.1 F 05/15/17 16:30 Pulse 107 H 05/15/17 16:30 Resp 20 05/15/17 16:30 BP 126/84 05/15/17 16:30 Pulse Ox 99 05/15/17 16:30 - Orders/Labs/Meds Orders: Active Orders 24 hr Category Date Time Status CULTURE BLOOD [BC] Stat Lab 05/15/17 15:04 Received CULTURE BLOOD [BC] Stat Lab 05/15/17 15:09 Received Blood Culture x2 Reflex Set [OM.PC] Stat Oth 05/15/17 14:43 Ordered Labs: Laboratory Tests 05/15/17 05/15/17 05/15/17 Range/Units 15:04 15:04 15:04 WBC 1.3 L* (5.0-10.0) 10^3/uL RBC 4.13 L (4.2-5.4) 10^6/uL Hgb 12.9 (12.0-16.0) g/dL Hct 37.1 (37.0-47.0) % MCV 89.8 D (80-100) fL MCH 31.2 (27.0-34.0) pg MCHC 34.8 (33.0-35.0) g/dL Plt Count 119 L D (150-450) 10^3/uL Neut % (Auto) 38.5 L (42.2-75.2) % Lymph % (Auto) 43.8 (20.5-50.1) % Lincoln % (Auto) 11.5 H (2-8) % Eos % (Auto) 5.4 H (1.0-3.0) % Baso % (Auto) 0.8 (0.0-1.0) % Add Manual Diff Yes Neutrophils % (Manual) 30 L (42-75) % Band Neutrophils % 14 % Lymphocytes % (Manual) 46 (20-50) % Monocytes % (Manual) 4 (2-8) % Eosinophils % (Manual) 5 H (1-3) % Basophils % (Manual) 1 Vacuolated Monocytes Few Toxic Granulation 1+ slight Platelet Estimate Decreased Giant Platelets Few Basophilic Stippling 1+ slight Tear Drop Cells 1+ slight Sodium 134 L (135-145) mmol/L Potassium 2.8 L (3.6-5.0) mmol/L Chloride 105 (101-111) mmol/L Carbon Dioxide 22.0 (21.0-31.0) mmol/L Anion Gap 9.8 BUN 7 (7-18) mg/dL Creatinine 0.7 (0.6-1.3) mg/dL Est Cr Clr Drug Dosing 120.58 mL/min Estimated GFR (MDRD) > 60 BUN/Creatinine Ratio 10.00 Glucose 118 H (74-105) mg/dL Lactic Acid 1.1 (0.5-2.2) mmol/L Calcium 8.4 (8.4-10.2) mg/dl Total Bilirubin 0.8 (0.2-1.0) mg/dL AST 66 H (10-42) IU/L ALT 83 H (10-60) IU/L Alkaline Phosphatase 70 (42-121) IU/L C-Reactive Protein (0.0-1.3) mg/dL Total Protein 6.8 (6.7-8.2) g/dl Albumin 3.7 (3.2-5.5) g/dl Globulin 3.1 Albumin/Globulin Ratio 1.19 /18/17 Range/Units 15:04 WBC (5.0-10.0) 10^3/uL RBC (4.2-5.4) 10^6/uL Hgb (12.0-16.0) g/dL Hct (37.0-47.0) % MCV (80-100) fL MCH (27.0-34.0) pg MCHC (33.0-35.0) g/dL Plt Count (150-450) 10^3/uL Neut % (Auto) (42.2-75.2) % Lymph % (Auto) (20.5-50.1) % Lincoln % (Auto) (2-8) % Eos % (Auto) (1.0-3.0) % Baso % (Auto) (0.0-1.0) % Add Manual Diff Neutrophils % (Manual) (42-75) % Band Neutrophils % % Lymphocytes % (Manual) (20-50) % Monocytes % (Manual) (2-8) % Eosinophils % (Manual) (1-3) % Basophils % (Manual) Vacuolated Monocytes Toxic Granulation Platelet Estimate Giant Platelets Basophilic Stippling Tear Drop Cells Sodium (135-145) mmol/L Potassium (3.6-5.0) mmol/L Chloride (101-111) mmol/L Carbon Dioxide (21.0-31.0) mmol/L Anion Gap BUN (7-18) mg/dL Creatinine (0.6-1.3) mg/dL Est Cr Clr Drug Dosing mL/min Estimated GFR (MDRD) BUN/Creatinine Ratio Glucose (74-105) mg/dL Lactic Acid (0.5-2.2) mmol/L Calcium (8.4-10.2) mg/dl Total Bilirubin (0.2-1.0) mg/dL AST (10-42) IU/L ALT (10-60) IU/L Alkaline Phosphatase (42-121) IU/L C-Reactive Protein 5.1 H (0.0-1.3) mg/dL Total Protein (6.7-8.2) g/dl Albumin (3.2-5.5) g/dl Globulin Albumin/Globulin Ratio Meds: Medications Discontinued Medications Generic Name Dose Route Start Last Admin Trade Name Freq PRN Reason Stop Dose Admin Ondansetron HCl 4 mg 05/15/17 17:52 05/15/17 18:03 Zofran IV 05/15/17 17:53 Not Given ONETIME ONE Ondansetron HCl 4 mg 05/15/17 18:00 05/15/17 18:05 Zofran Odt PO 05/15/17 18:01 4 mg ONETIME ONE Administration Potassium Chloride 40 meq 05/15/17 17:45 05/15/17 17:59 Klor-Con 10 PO 05/15/17 17:46 40 meq ONETIME ONE Administration - Re-Assessments/Exams Free Text/Narrative Re-Assessment/Exam: 05/15/17 18:[address] Brewer at 1630. She states admission is recommended. Patient refuses to be admitted to [facility], and is not wanting to go to [place] as she would like a different ENT doctor. [facility] was called and ER physician told the provider that there was no guarantee that the patient would be admitted there and that he highly suggested that she be admitted at the facility where she has been doctoring. Patient states she will drive herself to [place] and is refusing ambulance transport. [place] one call was then called back. Patient was accepted to Dr. Cabrera for direct admit, transfer by private vehicle. Departure - Departure Time of Disposition: 18:13 Disposition: DC/Tfer to Acute Hospital 02 Condition: Fair Clinical Impression: Drug-induced leukopenia, Mastoiditis of right side - Discharge Information Forms: ED Department Discharge, Interfacility Transfer EMTALISSA Additional Instructions: Go to the front desk admin of the hospital at [facility] in [place]. You will be direct admit under Dr. Márquez
[2017-05-15 18:27] VITALS: BP 134/77
== END 2017-05-15 18:26 ==
LOC: DL.ED 14:17
DX: D70.2 Other drug-induced agranulocytosis (principal); T36.0X5A Adverse effect of penicillins, initial encounter; H70.91 Unspecified mastoiditis, right ear; E66.9 Obesity, unspecified; Z88.1 Allergy status to other antibiotic agents; Z79.899 Other long term (current) drug therapy; Z87.891 Personal history of nicotine dependence
CPT/HCPCS: 36415; 80053; 83605; 85025; 86140; 87040; 99284; A9270

== ENCOUNTER 2018-09-21 23:30 | Emergency (ER) | payer BC ==
--- NOTE | 2018-09-21 23:41 | EDM.PDOC ---
ED HPI GENERAL MEDICAL PROBLEM - General Chief Complaint: Cardiovascular Problem Stated Complaint: CHEST HURTS [id number] Time Seen by Provider: 09/21/18 23:40 Source of Information: Reports: Patient History Limitations: Reports: No Limitations - History of Present Illness INITIAL COMMENTS - FREE TEXT/NARRATIVE: Patient comes emergency department today with complaints of chest pain. Since about 1:00 today she has had sharp shooting stabbing intermittent left lateral chest pain under her left breast that radiates to her left shoulder. This pain is gotten worse throughout the day and is now constant. This feels different than her typical anxiety type chest pain that she has midsternally. She is not short of breath. She has no fever no chills. She has no cough. She is not coughing up any blood. The pain does not get worse with deep breath cough movement or palpation. No weakness dizziness lightheadedness. No palpitations. No syncope. No diaphoresis. No abdominal pain nausea or vomiting. No black or tarry stools. No pain in her lower extremities. No history of PE or DVT for herself or her family. No recent trauma or recent surgeries. No recent long extensive travel. She was just started on [place] for control and she does smoke. 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 Left Chest Pain Score (Numeric/FACES): 4 - Related Data Allergies Allergy/AdvReac Type Severity Reaction Status Date / Time erythromycin base Allergy Vomiting Verified 09/21/18 23:50 [Erythromycin Base] Home Meds: Home Meds Ibuprofen 800 mg PO TID PRN 01/15/17 [History] Naratriptan HCl 2.5 mg PO ASDIRECTED PRN 01/15/17 [History] Norgestrel-Ethinyl Estradiol [Elinest-28 Tablet] 1 tab PO DAILY 01/15/17 [ History] busPIRone [Buspar] 10 mg PO BID PRN 01/15/17 [History] Biotin [Hard Nails] 2,500 mcg PO DAILY 01/16/17 [History] diphenhydrAMINE [Benadryl] 25 mg PO Q6H PRN 01/17/17 [History] Ofloxacin [Floxin 0.3% Otic Soln] 10 drop EARRT BID 04/25/17 [History] Ondansetron HCl [Zofran] 4 mg PO DAILY PRN 04/25/17 [History] oxyCODONE HCl/Acetaminophen [Oxycodone-Acetaminophen 10-300] 1 tab PO Q6H PRN [History] Piperacillin/Tazobactam [Zosyn] 4.5 gm IV TID 05/15/17 [History] Past Medical History HEENT History: Reports: Impaired Vision, Other (See Below) Other HEENT History: RIGHT MASTOIDITIS Cardiovascular History: Reports: Other (See Below) Other Cardiovascular History: tachycardia Gastrointestinal History: Reports: Chronic Constipation, Irritable Bowel Syndrome Genitourinary History: Reports: None 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: , Spontaneous 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: previous Neurological History: Reports: Migraines Psychiatric History: Reports: Anxiety, Depression Endocrine/Metabolic History: Reports: Obesity/BMI 30+ Dermatologic History: Reports: Psoriasis - Infectious Disease History Infectious Disease History: Reports: Chicken Pox - Past Surgical History HEENT Surgical History: Reports: Myringotomy w Tube(s), Other (See Below) Cardiovascular Surgical History: Reports: None GI Surgical History: Reports: Cholecystectomy Female Surgical History: Reports: Section Other Female Surgeries/Procedures: HX OF IUD- not in place now Neurological Surgical History: Reports: None Dermatological Surgical History: Reports: Skin Biopsy Social & Family History - Family History Family Medical History: Noncontributory - Caffeine Use Caffeine Use: Reports: Soda ED ROS GENERAL - Review of Systems Review Of Systems: ROS reveals no pertinent complaints other than HPI. ED EXAM, GENERAL - Physical Exam Exam: See Below Exam Limited By: No Limitations General Appearance: Alert, WD/WN, No Apparent Distress Head: Atraumatic, Normocephalic Neck: Normal Inspection, Supple, Non-Tender, Full Range of Motion Respiratory/Chest: No Respiratory Distress, Lungs Clear, Normal Breath Sounds, No Accessory Muscle Use, Chest Non-Tender, Other (No bruising or swelling swelling ecchymosis to the anterior chest. There is no tenderness throughout palpation of the anterior chest. There is no lymphadenopathy of the left axilla or right axilla.) Cardiovascular: Normal Peripheral Pulses, Regular Rate, Rhythm, No Edema, No Murmur, Tachycardia Peripheral Pulses: 2+: Radial (L), Radial (R), Posterior Tibial (L), Posterior Tibial (R), Dorsalis Pedis (L), Dorsalis Pedis (R) GI/Abdominal: Normal Bowel Sounds, Soft, Non-Tender, No Organomegaly, No Distention Back Exam: Normal Inspection Extremities: Normal Inspection, Normal Range of Motion, Non-Tender, No Pedal Edema, Normal Capillary Refill. No: Arm Pain, Prince's Sign, Leg Pain, Increased Warmth Neurological: Alert, Oriented, Normal Cognition, No Motor/Sensory Deficits Psychiatric: Normal Affect, Normal Mood Skin Exam: Warm, Dry, Intact, Normal Color Lymphatic: No Adenopathy EKG INTERPRETATION EKG Date: 09/21/18 Time: 23:31 Rhythm: NSR (Tachy) Rate (Beats/Min): 102 [place]: Normal P-Wave: Present QRS: Normal ST-T: Normal QT: Normal Comparison: NA - No Prior EKG Course - Vital Signs Last Recorded V/S: Last Vital Signs Temp 36.6 C 09/21/18 23:39 Pulse 111 H 09/21/18 23:39 Resp 18 09/21/18 23:39 BP 121/79 09/21/18 23:39 Pulse Ox 97 09/21/18 23:39 - Orders/Labs/Meds Labs: Laboratory Tests 09/21/18 09/21/18 09/21/18 Range/Units 23:50 23:50 23:50 WBC 8.6 (5.0-10.0) 10^3/uL RBC 4.41 (4.2-5.4) 10^6/uL Hgb 14.1 (12.0-16.0) g/dL Hct 40.4 (37.0-47.0) % MCV 91.6 (80-100) fL MCH 32.0 (27.0-34.0) pg MCHC 34.9 (33.0-35.0) g/dL Plt Count 287 D (150-450) 10^3/uL Neut % (Auto) 52.6 (42.2-75.2) % Lymph % (Auto) 38.3 (20.5-50.1) % [place] % (Auto) 5.4 (2-8) % Eos % (Auto) 3.5 H (1.0-3.0) % Baso % (Auto) 0.2 (0.0-1.0) % D-Dimer, Quantitative 200 (0-400) ng/mL Sodium 134 L (135-145) mmol/L Potassium 3.3 L (3.6-5.0) mmol/L Chloride 101 (101-111) mmol/L Carbon Dioxide 22.0 (21.0-31.0) mmol/L Anion Gap 14.3 BUN 11 (7-18) mg/dL Creatinine 0.8 (0.6-1.3) mg/dL Est Cr Clr Drug Dosing 75.48 mL/min Estimated GFR (MDRD) > 60 BUN/Creatinine Ratio 13.75 Glucose 108 H (74-105) mg/dL Calcium 8.8 (8.4-10.2) mg/dl Total Bilirubin 0.7 (0.2-1.0) mg/dL AST 21 (10-42) IU/L ALT 16 (10-60) IU/L Alkaline Phosphatase 47 (42-121) IU/L Troponin I < 0.02 (0.00-0.02) ng/ml Total Protein 6.9 (6.7-8.2) g/dl Albumin 3.8 (3.2-5.5) g/dl Globulin 3.1 Albumin/Globulin Ratio 1.23 Meds: Medications Discontinued Medications Generic Name Dose Route Start Last Admin Trade Name Freq PRN Reason Stop Dose Admin Ketorolac Tromethamine 30 mg 09/21/18 23:48 09/21/18 23:59 Toradol IVPUSH 09/21/18 23:49 30 mg ONETIME ONE Administration - Re-Assessments/Exams Free Text/Narrative Re-Assessment/Exam: 09/21/18 23:53 IV normal saline locked. Labs drawn. Ketorolac 30 mg IV push. 09/21/18 23:53 PERC Rule unable to rule out PE. [place] score 5 moderate risk. Wells' Score for PE 1.5 09/22/18 01:01 Her pain was better after the above therapy. Her troponin is negative as well as her d-dimer. I'm not really finding anything that specific causing her pain at this time but nothing emergent. She is comfortable with discharge at this time with symptomatic management. Departure - Departure Time of Disposition: 01:00 Disposition: Home, Self-Care 01 Clinical Impression: Atypical chest pain Instructions: Nonspecific Chest Pain Referrals: Norma Ferrell MD [Primary Care Provider] - Forms: ED Department Discharge Additional Instructions: Tylenol and or Ibuprofen as needed for pain. Return to the ED if new or worsening symptoms Recheck primary care provider in the next week if continued concerns. - Assessment/Plan Assessment:: Atypical chest pain. Plan: Tylenol and or Ibuprofen as needed for pain. Return to the ED if new or worsening symptoms Recheck primary care provider in the next week if continued concerns.
[2018-09-21 23:46] VITALS: BP 121/79
[2018-09-21] MEDS: Ketorolac 30 MG/ML SDV IVPUSH ONE (23:59)
[2018-09-22 00:15] LABS: ANION GAP 14.3; CHLORIDE,CL 101 mmol/L (101-111); SODIUM,NA 134 mmol/L (135-145)
== END 2018-09-22 01:05 | disposition home or self-care (01) ==
LOC: DL.ED 23:30
DX: R07.89 Other chest pain (principal); F41.9 Anxiety disorder, unspecified; F32.9 Major depressive disorder, single episode, unspecified; Z79.899 Other long term (current) drug therapy; Z88.1 Allergy status to other antibiotic agents
CPT/HCPCS: 36415; 71046; 80053; 84484; 85025; 85379; 93005; 99285; J1885; 96374

== ENCOUNTER 2021-05-31 18:00 | Emergency (ER) | payer BC | END 2021-05-31 18:23 | disposition left against medical advice (07) | LOC: DL.ED 18:00 | DX: Z53.21 Procedure and treatment not carried out due to patient leaving prior to being seen by health care provider (principal) ==

== ENCOUNTER 2022-04-02 21:47 | Emergency (ER) | payer BC, OTHER ==
[2022-04-02 22:37] VITALS: BP 119/61; PULSE 76
[2022-04-02 22:45] LABS: ANION GAP 12.4 mEq/L (7-13)
[2022-04-02] MEDS ORDERED: GI Cocktail Oral Solution 30 ML PO ONE (22:59)
== END 2022-04-02 23:24 | disposition home or self-care (01) ==
LOC: DL.ED 21:47
DX: K21.9 Gastro-esophageal reflux disease without esophagitis (principal); E66.9 Obesity, unspecified; Z68.32 Body mass index [BMI] 32.0-32.9, adult; Z88.1 Allergy status to other antibiotic agents; Z79.899 Other long term (current) drug therapy; Z87.891 Personal history of nicotine dependence
CPT/HCPCS: 36415; 80053; 83605; 84484; 85025; 85379; 93005; 99285; A9270-GY

== ENCOUNTER 2022-09-22 15:41 | Emergency (ER) | payer OTHER ==
[2022-09-22] MEDS ORDERED: predniSONE 20 MG Tab PO ONE (15:42)
[2022-09-22] MEDS ORDERED: Acetaminophen/HYDROcodone 325-10 MG Tab PO ONE (15:42)
[2022-09-22] MEDS ORDERED: Acetaminophen 500 MG Tab PO ONE (16:01)
[2022-09-22] MEDS ORDERED: Ketorolac 30 MG/ML SDV IVPUSH ONE (16:01)
[2022-09-22] MEDS ORDERED: HYDROmorphone 0.5 MG/0.5 ML Syringe IVPUSH ONE (16:35)
[2022-09-22] MEDS ORDERED: Ondansetron 4 MG/2 ML SDV IVPUSH ONE (16:35)
[2022-09-22 16:43] VITALS: BP 133/83; PULSE 82
[2022-09-22] MEDS ORDERED: methylPREDNISolone Sodium Succinate 125 MG/2 ML SDV IVPUSH ONE (17:04)
[2022-09-22] MEDS ORDERED: predniSONE 20 MG Tab ONE (17:25)
[2022-09-22] MEDS ORDERED: Acetaminophen/HYDROcodone 325-10 MG Tab ONE (17:25)
== END 2022-09-22 17:38 | disposition home or self-care (01) ==
LOC: DL.ED 15:41
DX: M51.16 Intervertebral disc disorders with radiculopathy, lumbar region (principal); E66.9 Obesity, unspecified; Z88.1 Allergy status to other antibiotic agents; Z88.8 Allergy status to other drugs, medicaments and biological substances; Z68.34 Body mass index [BMI] 34.0-34.9, adult
CPT/HCPCS: 72131; 96374; 96375; 99283; 99284; A9270; J1170; J1885; J2405; J2930; J7512

== ENCOUNTER 2023-03-08 22:06 | Emergency (ER) | payer BC, OTHER ==
[2023-03-09] MEDS ORDERED: Sodium Chloride 0.9% 10 ML Syringe FLUSH PRN (00:31)
[2023-03-09] MEDS ORDERED: Ketorolac 30 MG/ML SDV IVPUSH ONE (00:33)
[2023-03-09] MEDS ORDERED: Sodium Chloride 0.9% 1,000 ML IV ONE (00:33)
[2023-03-09 00:36] VITALS: BP 126/67; PULSE 77
[2023-03-09 00:51] LABS: BASOPHILS PERCENT AUTO 0.1 % (0.0-1.0); EOSINOPHILS PERCENT AUTO 0.3 % (1.0-3.0); HEMATOCRIT 40.4 % (37.0-47.0); HEMOGLOBIN 13.6 g/dL (12.0-16.0); MEAN CORPUSCULAR HEMOGLOBIN 31.5 pg (27.0-34.0); MEAN CORPUSCULAR HGB CONC 33.7 g/dL (33.0-35.0); MEAN CORPUSCULAR VOLUME 93.5 fL (80-100); MONOCYTES PERCENT AUTO 9.1 % (2-8); NEUTROPHILS PERCENT AUTO 69.5 % (42.2-75.2); PLATELET COUNT,PLT 223 10^3/uL (150-450); RED BLOOD CELL COUNT 4.32 10^6/uL (4.2-5.4); WHITE BLOOD CELL COUNT,WBC 13.4 10^3/uL (5.0-10.0)
[2023-03-09 01:18] LABS: LACTIC ACID 0.9 mmol/L (0.4-2.0)
[2023-03-09 01:37] LABS: A/G RATIO 1.2; ALANINE AMINOTRANSFERASE,ALT 16 U/L (14-59); ALBUMIN 3.9 g/dL (3.4-5.0); ALKALINE PHOSPHATASE 63 U/L (46-116); ANION GAP 14.3 mEq/L (7-13); ASPARTATE AMNIOTRANSFERASE,AST 10 U/L (15-37); BILIRUBIN TOTAL 0.6 mg/dL (0.2-1.0); BLOOD UREA NITROGEN,BUN 12 mg/dL (7-18); BUN/CREATININE RATIO 17.9 (No establ ref range); C-REACTIVE PROTEIN < 0.2 mg/dL (0.0-0.9); CALCIUM 8.4 mg/dL (8.5-10.1); CARBON DIOXIDE,CO2 26 mmol/L (21-32); CHLORIDE,CL 105 mmol/L (98-107); CREATININE 0.67 mg/dL (0.55-1.02); EST CRCL DRUG DOSING (CG) 118.98 mL/min; ESTIMATED GFR 115 mL/min (>=60); GLUCOSE RANDOM 115 mg/dL (70-99); MAGNESIUM 2.2 mg/dL (1.8-2.4); PHOSPHORUS 4.2 mg/dL (2.6-4.7); POTASSIUM,K 4.3 mmol/L (3.5-5.1); PROTEIN TOTAL,TP 7.1 g/dL (6.4-8.2); SODIUM,NA 141 mmol/L (136-145)
== END 2023-03-09 02:18 | disposition home or self-care (01) ==
LOC: DL.ED 22:06
DX: G43.909 Migraine, unspecified, not intractable, without status migrainosus (principal); R53.1 Weakness; G95.0 Syringomyelia and syringobulbia; E66.9 Obesity, unspecified; Z68.29 Body mass index [BMI] 29.0-29.9, adult; Z88.1 Allergy status to other antibiotic agents; Z88.8 Allergy status to other drugs, medicaments and biological substances; Z79.899 Other long term (current) drug therapy
CPT/HCPCS: 36415; 80053; 82607; 82746; 83605; 83735; 84100; 84425; 85025; 86140; 96374; 99283; 99284-25; J1885; J3490; J7030

== ENCOUNTER 2023-03-09 13:08 | Emergency (ER) | payer BC, OTHER ==
[2023-03-09 13:13] VITALS: BP 139/85; PULSE 76
[2023-03-09] MEDS ORDERED: Sodium Chloride 0.9% 10 ML Syringe FLUSH PRN (13:36)
[2023-03-09] MEDS ORDERED: Ondansetron 4 MG/2 ML SDV IV ONE ×2 (13:36→15:13)
[2023-03-09] MEDS ORDERED: Sodium Chloride 0.9% 1,000 ML IV ONE (13:36)
[2023-03-09] MEDS ORDERED: Ketorolac 30 MG/ML SDV IVPUSH ONE (13:36)
[2023-03-09] MEDS ORDERED: fentaNYL 100 MCG/2 ML SDV IVPUSH ONE ×2 (13:37→15:12)
== END 2023-03-09 16:32 ==
LOC: DL.ED 13:08
DX: R51.9 Headache, unspecified (principal); R53.1 Weakness; R29.818 Other symptoms and signs involving the nervous system; M53.80 Other specified dorsopathies, site unspecified; E66.9 Obesity, unspecified; Z68.31 Body mass index [BMI] 31.0-31.9, adult; Z88.1 Allergy status to other antibiotic agents; Z88.2 Allergy status to sulfonamides; Z88.8 Allergy status to other drugs, medicaments and biological substances
CPT/HCPCS: 96361; 96374; 96375; 96376; 99284; 99285-25; J1885; J2405; J3010; J7030